=== PATIENT | male | born 1975 | race African-American/Black ===

== ENCOUNTER 2016-05-12 14:19 | Emergency (ER) | payer SELFPAY ==
[~2016-05-12] VITALS: Ht 170.2 cm; Wt 70.0 kg
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
== END 2016-05-12 15:38 ==
LOC: NEPB 14:19
DX: S01.411A Laceration without foreign body of right cheek and temporomandibular area, initial encounter (principal); S00.83XA Contusion of other part of head, initial encounter; W22.01XA Walked into wall, initial encounter
CPT/HCPCS: 99283

== ENCOUNTER 2017-07-25 21:48 | Emergency (ER) | payer SELFPAY ==
[2017-07-25 21:59] VITALS: BP 129/91; PULSE 77; TEMP 98.5; O2SAT 98
[2017-07-25 22:36] LABS: BILIRUBIN, URINE NEG (NEG); BLOOD, URINE NEG (NEG); GLUCOSE,URINE NEG (NEG); KETONE, URINE NEG (NEG); NITRITE,URINE NEG (NEG); URINE COLOR YELLOW (YELLW/STRAW); URINE LEUKOCYTE ESTERASE NEG (NEG)
[2017-07-25 22:44] LABS: MUCUS URINE MANY /lpf (OCC)
[2017-07-25 22:45] LABS: SQUAMOUS EPITHELIAL CELL URINE 0-5 /hpf (0-5)
[2017-07-25 22:46] LABS: WBC, URINE 0-2 /hpf (0-5)
[2017-07-26] MEDS ORDERED: DOXY100C PO (00:06)
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
[2017-07-26] MEDS ORDERED: AZITHROMYCIN 250 MG TAB PO ONE (00:15)
[2017-07-26] MEDS ORDERED: LIDOCAINE HCL 1% 50 ML VIAL IM ONE (00:15)
[2017-07-26] MEDS ORDERED: cefTRIAXone 250 MG VIAL IM ONE (00:15)
[2017-07-26 01:20] VITALS: BP 123/92
== END 2017-07-26 01:23 | disposition home or self-care (01) ==
LOC: PHED 21:48
DX: N34.2 Other urethritis (principal); I10 Essential (primary) hypertension; Z79.899 Other long term (current) drug therapy; Z88.6 Allergy status to analgesic agent
CPT/HCPCS: 81001; 87491; 87591; 96372; 99283; J0696